=== PATIENT | female | born 2000 | race Caucasian/White ===

== ENCOUNTER 2024-11-02 02:03 | Emergency (ER) | payer SELFPAY ==
[~2024-11-02] VITALS: Ht 162.6 cm; Wt 94.1 kg
[2024-11-02 02:25] VITALS: O2SAT 100
[2024-11-02] MEDS: SODIUM CHLORIDE 0.9% 1,000 ML IV ONE (03:49)
[2024-11-02] MEDS: ONDANSETRON HCL 4MG/2ML INJ IV STA (03:51)
[2024-11-02 04:01] LABS: BASOPHILS % 0.2 % (0.0-2.0); DIFFERENTIAL COMMENT 0; EOSINOPHILS % 0.8 % (0.0-5.0); HEMATOCRIT. 42.2 % (36.0-48.0); HEMOGLOBIN. 13.9 g/dL (12.0-16.0); LYMPHOCYTES % 9.2 % (20.0-50.0); MEAN CORPUSCULAR HEMOGLOBIN 25.9 pg (28.0-32.0); MEAN CORPUSCULAR VOLUME 78.3 fL (81.0-99.0); MEAN PLATELET VOLUME 8.2 fl (7.4-10.4); MONOCYTES % 7.2 % (2.0-8.0); NEUTROPHILS % 82.6 % (40.0-76.0); PLATELET 494 x1000/uL (130-400); RED BLOOD CELL COUNT 5.39 mill/uL (4.2-5.4); RED CELL DISTRIBUTION WIDTH 15.5 % (11.6-14.6); WHITE BLOOD COUNT 22.9 x1000/uL (4.5-11.0)
[2024-11-02 04:07] LABS: CARBON DIOXIDE 20 mEq/L (21-32); CHLORIDE 105 mEq/L (98-107); POTASSIUM 4.5 mEq/L (3.5-5.1); SODIUM 137 mEq/L (136-145)
[2024-11-02 04:08] LABS: CALCIUM 9.6 mg/dL (8.7-10.4)
[2024-11-02] MEDS: KETOROLAC 30MG/ML VIAL IV STA (04:12)
[2024-11-02 04:13] LABS: GLUCOSE 139 mg/dL (70-105); HCG SCREEN NEGATIVE; UREA NITROGEN BLOOD 10 mg/dL (9-23)
[2024-11-02] MEDS: FAMOTIDINE 20MG/2ML VIAL IV ONE (04:16)
[2024-11-02] MEDS: FAMOTIDINE 20MG/2ML VIAL IV NR (04:43)
[2024-11-02 05:04] VITALS: BP 111/68; PULSE 83; RESP 14; TEMP 36.7; O2SAT 100
== END 2024-11-02 05:38 | disposition left against medical advice (07) ==
LOC: ER 02:18
DX: R10.13 Epigastric pain (principal); R11.2 Nausea with vomiting, unspecified; R19.7 Diarrhea, unspecified; J45.909 Unspecified asthma, uncomplicated
CPT/HCPCS: 80048; 84703; 83690; 85025; 36415; 96361; 96374; 96375; 99284; J3490; J1885; J2405; Z7610